=== PATIENT | female | born 1960 | race Caucasian/White ===

== ENCOUNTER 2017-02-07 13:54 | Emergency (ER) | payer OTHER ==
[~2017-02-07] VITALS: Ht 167.6 cm; Wt 60.2 kg
[2017-02-07] MEDS ORDERED: PHENAZOPYRIDINE 200 MG TABLET PO ONE (14:30)
[2017-02-07 14:52] LABS: HEMATOCRIT 49.1 % (34.6-47.8); HEMOGLOBIN 16.4 g/dL (11.7-16.4); WHITE BLOOD COUNT 6.1 x10^3/uL (3.4-10)
[2017-02-07 15:00] LABS: BLOOD UREA NITROGEN 20 mg/dL (7-18)
[2017-02-07] MEDS ORDERED: ALBUTEROL SULFATE 2.5MG/0.5ML ONE (15:26)
[2017-02-07] MEDS ORDERED: PHENAZOPYRIDINE 200 MG TABLET ONE (15:27)
[2017-02-07 15:35] LABS: PATH.CAST-FLAG NOT PRESENT; SPERM-FLAG NOT PRESENT; SRC-FLAG NOT PRESENT; XTAL-FLAG NOT PRESENT; YLC-FLAG NOT PRESENT
[2017-02-07 15:54] VITALS: BP 144/90
== END 2017-02-07 16:39 | disposition home or self-care (01) ==
LOC: ED 16:33
DX: R10.2 Pelvic and perineal pain (principal); Z88.6 Allergy status to analgesic agent; Z88.8 Allergy status to other drugs, medicaments and biological substances
CPT/HCPCS: 36415; 80048; 81001; 82040; 85025; 85651; 87086; 99284